=== PATIENT | male | born 1995 | race Caucasian/White ===

== ENCOUNTER 2020-08-24 03:44 | Emergency (ER) | payer OTHER ==
[~2020-08-24] VITALS: Ht 188 cm; Wt 117.9 kg
[2020-08-24] MEDS ORDERED: CILOXAN5 ML TOP (04:20)
[2020-08-24 04:29] VITALS: BP 141/87
== END 2020-08-24 04:29 | disposition home or self-care (01) ==
LOC: M.ERS 03:44
DX: S05.01XA Injury of conjunctiva and corneal abrasion without foreign body, right eye, initial encounter (principal); H16.001 Unspecified corneal ulcer, right eye; X58.XXXA Exposure to other specified factors, initial encounter; Y93.89 Activity, other specified; Y92.89 Other specified places as the place of occurrence of the external cause; Y99.8 Other external cause status